=== PATIENT | female | born 1950 | race Caucasian/White ===

== ENCOUNTER 2018-10-06 15:06 | Observation (INO) | payer MEDICARE ==
[~2018-10-06] VITALS: Ht 160 cm; Wt 60.5 kg
[2018-10-06 15:12] VITALS: Ht 160 cm; Wt 60.5 kg
--- NOTE | 2018-10-06 15:42 | NUR ---
MSE COMPLETED BY DR NAM.
[2018-10-06 16:04] LABS: BASOPHIL % 0.3 % (0-2); PLATELET COUNT 274 x10^3mcL (130-400)
[2018-10-06 16:28] LABS: CALCIUM 10.6 mg/dL (8.5-10.1); CARBON DIOXIDE 23.2 mmol/L (21-32); CHLORIDE SERUM 100 mmol/L (98-107); CREATININE SERUM 0.8 mg/dL (0.6-1.0); GFR1 > 60 mL/min; GLUCOSE SERUM 208 mg/dL (74-106); POTASSIUM SERUM 4.6 mmol/L (3.5-5.1); SODIUM SERUM 133 mmol/L (136-145)
[2018-10-06 16:41] LABS: ALBUMIN 3.7 g/dL (3.4-5.0); ALKALINE PHOSPHATASE 135 U/L (46-116); ALT/SGPT 40 U/L (14-59); AST/SGOT 40 U/L (15-37); BILIRUBIN TOTAL 0.7 mg/dL (0.20-1.00); CHOLESTEROL 152 mg/dL (<200); LIPASE 235 IU/L (73-393); T4(THYROXINE) 7.5 ug/dL (4.7-13.3); TOTAL PROTEIN, SERUM 7.7 g/dL (6.4-8.2)
--- NOTE | 2018-10-06 17:05 | NUR ---
PT MEDICATED PER MD ORDERS SEE EMAR. IVF INFUSING WITH NO PROBLEM. PT IN NO DISTRESS WILL MONITOR
[2018-10-06 18:08] LABS: microscopic required? NO
[2018-10-06 18:18] LABS: urine erythrocyte NEGATIVE (NEGATIVE)
--- NOTE | 2018-10-06 18:20 | NUR ---
SPOKE TO PEDRO AT [facility] REGARDING PT FOR POSSIBLE TRANSFER. PER PEDRO SHE WILL FIND A CONTRACTED FACILITY AND WILL CALL BACK. ER AND DYE MAKER LUCY NOTIFIED
--- NOTE | 2018-10-06 18:26 | NUR ---
BS CHECKED 55 REPORTED TO MD. PER MD ORDER A FOOD TRAY. DIET ORDERED. PT IN BED NO DISTRESS VSS ASYMPTOMATIC WILL MONITOR. IVF INFUSING WITH NO PROBLEM
--- NOTE | 2018-10-06 18:37 | NUR ---
POC AND TEST RESULTS DISCUSSED WITH PT BY DR NAM. PT VERBALIZED UNDERSTANDING AWARE SHE WILL NEED TO BE TRANSFERRED. PT AAOX4 NO DISTRESS. WILL MONITOR
--- NOTE | 2018-10-06 18:40 | NUR ---
DINNER TRAY GIVEN TO PT. PT SITTING IN POSITION OF COMFORT. WILL MONITOR
--- NOTE | 2018-10-06 19:01 | NUR ---
REPORT RECEIVED FROM BARRY LE I WILL BE RESUMING CARE OF PT AT THIS TIME
--- NOTE | 2018-10-06 19:05 | NUR ---
PT AAOX4 RESPS E/U IN POSITION OF COMFORT CALL LIGHT WITHIN REACH
--- NOTE | 2018-10-06 19:06 | NUR ---
REPORT GIVEN TO MADELYN LE. RESUMING CARE OF PT AT THIS TIME.
--- NOTE | 2018-10-06 19:59 | NUR ---
RESPS E/U PT WATCHING TV IN NO ACUTE DISTRESS AT THIS TIME AT BEDSIDE
--- NOTE | 2018-10-06 20:37 | NUR ---
PT IN POSITON OF COMFORT RESPS E/U WARM BLANKET PROVIDED AT BEDSIDE WILL CONTINUE TO MONITOR
--- NOTE | 2018-10-06 21:57 | NUR ---
PT IN POSTIION OF COMFORT RESPS E/U WARM BLANKET AND SOCKS PROVIDED
--- NOTE | 2018-10-06 22:56 | NUR ---
PT IN POSITION OF COMFORT WATER PROVIDED PER PT REQUEST CALL LIGHT WITHIN REACH
[2018-10-06] MEDS ORDERED: IBUPROFEN400 MG PO ×2 (23:30→23:31)
[2018-10-06] MEDS ORDERED: CEPHALEXIN500 MG PO (23:30)
[2018-10-06] MEDS ORDERED: EPZICOM1 TAB (23:30)
--- NOTE | 2018-10-06 23:41 | NUR ---
PT IN POSITION OF COMFORT RESPS E/U
--- NOTE | 2018-10-07 00:05 | NUR ---
RECEIVED PT FROM ED VIA WHEELCHAIR, CAME IN DUE TO RLE PAIN X4 DAYS. AAOX4. DENIES HEADACHE/DIZZINESS. ABLE TO FOLLOW COMMANDS. NO SOB NOTED, LUNG SOUNDS CTA. DENIES CHEST PAIN/PRESSURE. DENIES ABDOMINAL DISCOMFORT. BOWEL SOUNDS ACTIVE. C/O 3/10 RLE PAIN, W/ BLISTER, CHIP-WOUND IS PINK. W/ TRACE EDEMA ON RIGHT FOOT. IV SITE ON THE RAC IS PATENT AND INTACT. SIDE RAILS UPX2. CALL LIGHT ON REACH. ENDORSED TO PRIMARY NURSE GLENNY FOR CONTINUITY OF CARE
[2018-10-07 00:17] VITALS: BP 138/86
--- NOTE | 2018-10-07 05:24 | NUR ---
NO SIGNIFICANT CHANGES TO REPORT, PT COMPLIED WITH NURSING CARE THROUGHOUT THE SHIFT WITH NO ACUTE EVENTS OVERNIGHT. NO ACUTE DISTRESS OBSERVED AT THIS TIME, PT LAYING IN BED, BREATHING EVEN AND UNLABORED, AROUSABLE TO VERBAL STIMULI. COMFORT AND SAFETY MEASURES MAINTAINED. ALL NEEDS ASSESSED AND ATTENDED TO. CALL LIGHT WITHIN REACH. WILL CONTINUE TO MONITOR AND ENDORSE CARE TO DAY SHIFT NURSE
[2018-10-07 05:53] VITALS: BP 118/54
--- NOTE | 2018-10-07 07:20 | NUR ---
RECIEVED PT RESTING IN BED COMFORTABLY FROM WOOD BORER. DENIES ANY PAIN OR RESPIRATORY DISTRESS AT THIS TIME. IV SALINE LOCK AT RAC 22G INTACT AND PATENT WITH NO REDNESS. VS WNL. WILL ASSESS, DOCUMENT AND CONTINUE TO MONITOR.
[2018-10-07 10:00] VITALS: BP 86/39
[2018-10-07 10:15] VITALS: BP 95/49
--- NOTE | 2018-10-07 10:15 | NUR ---
PT SITTING UP IN BED WATCHING TELEVISION. RECHECKED BP. BP NOW AT 95/49 HR 54 AND MAP 64. PT ASYMPTOMATIC AND DENIES ANY PAIN OR DIZZINESS. WILL CONITUE TO MONITOR.
[2018-10-07 10:38] VITALS: BP 103/50
--- NOTE | 2018-10-07 12:00 | NUR ---
PT RESTING COMFORTABLY IN BED AT THIS TIME. DENIES ANY PAIN OR RESP DISTRESS. CALL LIGHT WITHIN REACH. WILL MONITOR
[2018-10-07] MEDS ORDERED: VANCOMYCIN PER PHARM MC (12:36)
[2018-10-07] MEDS ORDERED: TYL325 PO (12:37)
--- NOTE | 2018-10-07 14:00 | NUR ---
PT STABLE AND STATES NO PAIN IR DISTRESS AT THIS TIME. ALL NEEDS ATTENDED TO. WILL CONTINUE TO MONITOR.
--- NOTE | 2018-10-07 14:40 | NUR ---
RECEIVED CALL FROM ROLLING MACHINE OPERATOR STATING PER REGAL PATIENT IS GOING TO BE TRANSFERED TO [facility] FOR CONTINUED IV ANTIBIOTICS, ROOM 111-B, DR. COLLADO IS ACCEPTING PHYSICIAN, NURSE IS TO CALL REPORT [phone], AND [facility] MOVIE MACHINE OPERATOR TIME TBA. PATIENT MADE AWARE AND AND STATED WILL CALL HER AND NOTIFY HIM. ALL QUESTIONS AND CONCERNS ADDRESSED. WILL MONITOR.
--- NOTE | 2018-10-07 14:55 | NUR ---
PATIENT IS TO BE TRANSFERED TO [facility] TODAY FOR CONTINUED IV ABX. DR. RUBIN MADE AWARE AND RECEIVED T.O FROM DR. RUBIN FOR CLINDAMYCIN 600 MG IV EVERY 8 HOURS FOR [address] OFFICE MACHINE INSTALLER ORDER FOR IV ABX. CHARGE NURSE MADE AWARE.
[2018-10-07 15:57] VITALS: BP 103/50
--- NOTE | 2018-10-07 16:00 | NUR ---
PT STABLE NO PAIN OR DISTRESS NOTED. TOLERATING ALL CARES WELL. CALL LIGHT WITHIN REACH. WILL MONITOR
--- NOTE | 2018-10-07 18:10 | NUR ---
GAVE REPORT ON PT TO REY GERARDO AT [facility] [phone]. ALL QUESTIONS AND CONCERNS ADDRESSED AND ENDORSED. PT HAS LEFT FACILILY FOR TRANSFER.
--- NOTE | 2018-10-07 18:13 | NUR ---
PATIENT TO BE TRANSFERED TO [facility] IN [place] FOR CONTINUED IV ABX. PREMIERE TRANSPORTATION AT BEDSIDE. IV TO RAC H/L INTACT AND PATENT. ID BANDS REMOVED. PATIENT TRANSFERED DOWN TO [facility] VIA GURNEY. ALL PERSONAL BELONGINGS SENT WITH PATIENT.
== END 2018-10-07 18:12 | DRG 315 ==
LOC: ED 15:06 → MU 23:38
PROVIDERS: Emergency Medicine; ADMIT Internal Medicine Pulmonary Disease
DX: I97.89 Other postprocedural complications and disorders of the circulatory system, not elsewhere classified (principal); L03.115 Cellulitis of right lower limb; I83.11 Varicose veins of right lower extremity with inflammation; E11.9 Type 2 diabetes mellitus without complications; I10 Essential (primary) hypertension; Y84.8 Other medical procedures as the cause of abnormal reaction of the patient, or of later complication, without mention of misadventure at the time of the procedure; Y92.009 Unspecified place in unspecified non-institutional (private) residence as the place of occurrence of the external cause
CPT/HCPCS: 82962; G0378; J0295; J1650; J1815; J1885; J3370; J3490; J7030; J7050

== ENCOUNTER 2019-06-06 18:06 | Emergency (ER) | payer OTHER ==
[~2019-06-06] VITALS: Ht 160 cm; Wt 54.9 kg
[~2019-06-06 18:06] MED LIST: CEPHALEXIN500 MG PO; EPZICOM1 TAB; IBUPROFEN400 MG PO; TYL325 PO; VANCOMYCIN PER PHARM MC
[2019-06-06 18:22] VITALS: Ht 160 cm; Wt 54.9 kg
[2019-06-06 22:12] LABS: BASOPHIL % 0.1 % (0-2); PLATELET COUNT 206 x10^3mcL (130-400); RED CELL DISTRIBUTION WIDTH 13.3 % (11.5-14.5)
[2019-06-06 22:14] LABS: microscopic required? YES; urine erythrocyte NEGATIVE (NEGATIVE)
[2019-06-06 22:55] LABS: ALBUMIN 4.5 g/dL (3.4-5.0); BILIRUBIN TOTAL 1.54 mg/dL (0.20-1.00); CARBON DIOXIDE 29.9 mmol/L (21-32); CREATININE SERUM 1.1 mg/dL (0.6-1.0); POTASSIUM SERUM 4.7 mmol/L (3.5-5.1); TOTAL PROTEIN, SERUM 8.1 g/dL (6.4-8.2)
[2019-06-07 01:55] VITALS: BP 132/57
== END 2019-06-07 03:17 | disposition home or self-care (01) ==
LOC: ED 18:06
PROVIDERS: Emergency Medicine
DX: K76.0 Fatty (change of) liver, not elsewhere classified (principal); I10 Essential (primary) hypertension; E11.9 Type 2 diabetes mellitus without complications
CPT/HCPCS: 36415; 82962; 87804; Q0092; Q9967

== ENCOUNTER 2019-09-02 15:21 | Inpatient (IN) | payer OTHER ==
[~2019-09-02] VITALS: Ht 162.6 cm; Wt 50.1 kg
[2019-09-02 16:10] LABS: BASOPHIL % 0.4 % (0-2); PLATELET COUNT 241 x10^3mcL (130-400); RED CELL DISTRIBUTION WIDTH 13.8 % (11.5-14.5)
[2019-09-02 16:32] LABS: ALBUMIN 3.8 g/dL (3.4-5.0); BILIRUBIN TOTAL 0.5 mg/dL (0.20-1.00); CARBON DIOXIDE 28.7 mmol/L (21-32); CREATININE SERUM 1.5 mg/dL (0.6-1.0); POTASSIUM SERUM 3.5 mmol/L (3.5-5.1); TOTAL PROTEIN, SERUM 7.3 g/dL (6.4-8.2)
[2019-09-02] MEDS ORDERED: FORTAMET500 M1 PO (19:24)
[2019-09-02] MEDS ORDERED: INDERAL XL80 MG PO (19:25)
[2019-09-02] MEDS ORDERED: ZESTRIL20 MG PO (19:25)
[2019-09-02] MEDS ORDERED: SIMVASTATIN5 M2 PO (19:26)
[2019-09-02] MEDS ORDERED: ESCITALOPRAM OX20 MG PO (19:26)
[2019-09-02] MEDS ORDERED: AMARYL4 MG PO (19:26)
[2019-09-02 20:35] VITALS: BP 157/64
[2019-09-02 20:39] VITALS: Ht 162.6 cm; Wt 50.1 kg
[2019-09-03 04:20] VITALS: BP 121/64
[2019-09-03 06:59] LABS: ALBUMIN 3.5 g/dL (3.4-5.0); BILIRUBIN TOTAL 0.5 mg/dL (0.20-1.00); CARBON DIOXIDE 30.4 mmol/L (21-32); CREATININE SERUM 1.3 mg/dL (0.6-1.0); MAGNESIUM 1.5 mg/dL (1.8-2.4); POTASSIUM SERUM 3.6 mmol/L (3.5-5.1); TOTAL PROTEIN, SERUM 6.8 g/dL (6.4-8.2)
[2019-09-03 07:01] LABS: BASOPHIL % 0.7 % (0-2); PLATELET COUNT 217 x10^3mcL (130-400); RED CELL DISTRIBUTION WIDTH 13.4 % (11.5-14.5)
[2019-09-03 07:25] LABS: CALCIUM 15.3 mg/dL (8.5-10.1)
[2019-09-03 07:59] VITALS: BP 133/68
[2019-09-03 16:23] VITALS: BP 102/45
[2019-09-03 20:46] VITALS: BP 135/64
[2019-09-04 05:35] VITALS: BP 132/66
[2019-09-04 07:11] LABS: BASOPHIL % 0.6 % (0-2); PLATELET COUNT 236 x10^3mcL (130-400); RED CELL DISTRIBUTION WIDTH 13.3 % (11.5-14.5)
[2019-09-04 07:29] LABS: T3 TOTAL 1.24 ng/mL
[2019-09-04 07:57] LABS: FREE T4 0.97 ng/dL (0.76-1.46); T4(THYROXINE) 7.1 ug/dL (4.7-13.3)
[2019-09-04 08:23] LABS: ALBUMIN 3.5 g/dL (3.4-5.0); BILIRUBIN TOTAL 0.55 mg/dL (0.20-1.00); CARBON DIOXIDE 29.2 mmol/L (21-32); CREATININE SERUM 1.2 mg/dL (0.6-1.0); MAGNESIUM 1.9 mg/dL (1.8-2.4); POTASSIUM SERUM 3.1 mmol/L (3.5-5.1); TOTAL PROTEIN, SERUM 6.6 g/dL (6.4-8.2)
[2019-09-04 09:09] LABS: CALCIUM 15.5 mg/dL (8.5-10.1)
[2019-09-04 09:17] VITALS: BP 121/51
[2019-09-04 17:47] VITALS: BP 127/52
[2019-09-04 20:38] VITALS: BP 123/57
[2019-09-05 05:59] VITALS: BP 134/61
[2019-09-05 07:14] LABS: CARBON DIOXIDE 29.7 mmol/L (21-32); CREATININE SERUM 1.3 mg/dL (0.6-1.0)
[2019-09-05 07:37] LABS: CALCIUM 14.3 mg/dL (8.5-10.1)
[2019-09-05 08:06] VITALS: BP 113/62
[2019-09-05 10:59] LABS: PLATELET COUNT 202 x10^3mcL (130-400); RED CELL DISTRIBUTION WIDTH 13.2 % (11.5-14.5)
[2019-09-05 11:00] LABS: BASOPHIL % 0 % (0-2)
[2019-09-05 12:09] VITALS: BP 111/51
[2019-09-05 17:38] VITALS: BP 105/46
[2019-09-05 20:26] VITALS: BP 107/58
[2019-09-06 05:39] VITALS: BP 103/56
[2019-09-06 07:49] VITALS: BP 102/52
[2019-09-06 10:07] LABS: CALCIUM IONIZED 7.4 mg/dL (4.5-5.6)
[2019-09-06 10:48] LABS: calcium (part of PTHIC) 15.5 mg/dL (8.7-10.3)
[2019-09-06 11:09] LABS: BILIRUBIN TOTAL 0.53 mg/dL (0.20-1.00); CALCIUM 11.3 mg/dL (8.5-10.1); CARBON DIOXIDE 28.2 mmol/L (21-32); CREATININE SERUM 1.2 mg/dL (0.6-1.0); TOTAL PROTEIN, SERUM 6.2 g/dL (6.4-8.2)
[2019-09-06 11:10] LABS: BASOPHIL % 0.6 % (0-2); PLATELET COUNT 151 x10^3mcL (130-400); RED CELL DISTRIBUTION WIDTH 13.2 % (11.5-14.5)
[2019-09-06 11:16] LABS: ALBUMIN 3.1 g/dL (3.4-5.0); POTASSIUM SERUM 2.9 mmol/L (3.5-5.1)
[2019-09-06 12:15] VITALS: BP 99/48
[2019-09-06 16:45] VITALS: BP 93/44
[2019-09-06 19:36] VITALS: BP 113/46
[2019-09-07 04:50] VITALS: BP 112/44
[2019-09-07 07:12] LABS: BASOPHIL % 0.7 % (0-2); PLATELET COUNT 177 x10^3mcL (130-400); RED CELL DISTRIBUTION WIDTH 13.6 % (11.5-14.5)
[2019-09-07 07:54] LABS: BILIRUBIN TOTAL 0.5 mg/dL (0.20-1.00); CALCIUM 10.9 mg/dL (8.5-10.1); CARBON DIOXIDE 27.9 mmol/L (21-32); CREATININE SERUM 1.1 mg/dL (0.6-1.0); MAGNESIUM 1.6 mg/dL (1.8-2.4); PHOSPHOROUS 1.3 mg/dL (2.5-4.9); POTASSIUM SERUM 3.6 mmol/L (3.5-5.1); TOTAL PROTEIN, SERUM 6.4 g/dL (6.4-8.2)
[2019-09-07 08:04] LABS: ALBUMIN 3.2 g/dL (3.4-5.0)
[2019-09-07 08:11] VITALS: BP 117/56
[2019-09-07 12:06] VITALS: BP 109/49
[2019-09-07] MEDS ORDERED: CINACALCET HCL30 MG PO (14:12)
[2019-09-07 17:22] VITALS: BP 97/48
[2019-09-07 20:11] VITALS: BP 104/47
[2019-09-07 21:39] VITALS: BP 104/47
[2019-09-08 08:06] LABS: CALCIUM IONIZED 6.5 mg/dL (4.5-5.6)
== END 2019-09-07 22:20 | disposition home health service (06) | DRG 644 ==
LOC: ED 15:21 → MU 18:25
PROVIDERS: Emergency Medicine; Hospitalist; Internal Medicine Nephrology; Internal Medicine Pulmonary Disease; ADMIT Internal Medicine Pulmonary Disease
DX: E21.0 Primary hyperparathyroidism (principal); N17.9 Acute kidney failure, unspecified; E87.0 Hyperosmolality and hypernatremia; Z68.1 Body mass index [BMI] 19.9 or less, adult; R63.4 Abnormal weight loss; E04.1 Nontoxic single thyroid nodule; I12.9 Hypertensive chronic kidney disease with stage 1 through stage 4 chronic kidney disease, or unspecified chronic kidney disease; E11.22 Type 2 diabetes mellitus with diabetic chronic kidney disease; N18.3 Chronic kidney disease, stage 3 (moderate); N28.1 Cyst of kidney, acquired; K76.0 Fatty (change of) liver, not elsewhere classified; E78.5 Hyperlipidemia, unspecified; D64.9 Anemia, unspecified; E87.6 Hypokalemia; Z90.49 Acquired absence of other specified parts of digestive tract
CPT/HCPCS: 82652; 84439; 97116-GP; 97530-GP; G0378; J1940; J2430; J3475; J7030; J7120